=== PATIENT | male | born 1990 | race Caucasian/White ===

== ENCOUNTER 2017-05-02 16:35 | Emergency (ER) | payer SELFPAY | END 2017-05-02 17:25 | disposition home or self-care (01) | LOC: D.ER 16:35 | DX: K05.10 Chronic gingivitis, plaque induced (principal); K08.89 Other specified disorders of teeth and supporting structures; K02.9 Dental caries, unspecified; F17.200 Nicotine dependence, unspecified, uncomplicated ==

== ENCOUNTER 2017-10-07 19:18 | Emergency (ER) | payer SELFPAY ==
[~2017-10-07] VITALS: Ht 160 cm; Wt 63.6 kg
[2017-10-07 19:28] VITALS: Ht 160 cm; Wt 63.6 kg
[2017-10-07] MEDS ORDERED: VOLTAREN75 MG PO (20:38)
[2017-10-07 22:20] VITALS: BP 132/75
== END 2017-10-07 21:40 | disposition home or self-care (01) ==
LOC: D.ER 19:18
DX: S63.502A Unspecified sprain of left wrist, initial encounter (principal); W11.XXXA Fall on and from ladder, initial encounter; Y93.89 Activity, other specified; Y92.89 Other specified places as the place of occurrence of the external cause; F17.200 Nicotine dependence, unspecified, uncomplicated

== ENCOUNTER 2019-01-11 17:19 | Emergency (ER) | payer OTHER ==
[~2019-01-11] VITALS: Ht 160 cm; Wt 56.8 kg
[~2019-01-11 17:19] MED LIST: VOLTAREN75 MG PO
[2019-01-11 17:36] VITALS: Ht 160 cm; Wt 56.8 kg
[2019-01-11 17:56] LABS: BASOPHILS 0.2 % (0-2); EOSINOPHILS 0.9 % (0-7); HEMATOCRIT 42.8 % (42.0-54.0); HEMOGLOBIN 14.8 g/dL (13.5-17.5); IMMATURE GRANULOCYTES 0.2 % (0-5); LYMPHOCYTES 26.7 % (15-50); MCH 31.4 pg (26.0-34.0); MCHC 34.6 g/dL (31.0-37.0); MCV 90.7 fL (80.0-100.0); MEAN PLATELET VOLUME 9.3 fL (7.4-10.4); MONOCYTES 8.3 % (2-11); NEUTROPHILS 63.7 % (40-80); RBC 4.72 10x6/uL (4.20-6.10); RDW 13.6 % (11.5-14.5); WBC 11.8 10x3/uL (4.8-10.8)
[2019-01-11 17:57] LABS: PLATELET COUNT 407 10x3/uL (130-400)
[2019-01-11 18:02] LABS: APPEARANCE CLEAR (CLEAR); BILIRUBIN NEGATIVE (NEGATIVE); COLOR YELLOW (YELLOW); GLUCOSE NEGATIVE (NEGATIVE); KETONE NEGATIVE (NEGATIVE); NITRITE NEGATIVE (NEGATIVE); PROTEIN NEGATIVE (NEGATIVE); SPECIFIC GRAVITY 1.015 (1.005-1.020); UROBILINOGEN NORMAL (NORMAL)
[2019-01-11 18:32] LABS: ALBUMIN 3.7 g/dL (3.4-5.0); ALKALINE PHOSPHATASE 72 U/L (46-116); ALT (SGPT) 17 U/L (10-68); AMYLASE - SERUM 79 U/L (25-115); BILIRUBIN - TOTAL 0.18 mg/dL (0.2-1.3); CALC OSMOLALITY 278 mosm/kg (275-300); CARBON DIOXIDE 31.9 mmol/L (21.0-32.0); CHLORIDE - SERUM 103 mmol/L (98-107); GLUCOSE 93 mg/dL (74-106); LIPASE 149 U/L (73-393); POTASSIUM - SERUM 4.2 mmol/L (3.5-5.1); PROTEIN - SERUM 7.6 g/dL (6.4-8.2); SODIUM 139 mmol/L (136-145); UREA NITROGEN 14 mg/dL (7-18); eGFR NON AFRICAN AMERICAN > 90 mL/min (90-120)
[2019-01-11 18:34] LABS: TROPONIN-I < 0.017 ng/mL (0.000-0.060)
[2019-01-11] MEDS ORDERED: DULCOLAX STOOL100 MG PO (20:20)
[2019-01-11] MEDS ORDERED: MIRALAX17 GM PO (20:20)
[2019-01-11 20:45] VITALS: BP 135/92
== END 2019-01-11 20:45 | disposition home or self-care (01) ==
LOC: D.ER 17:19
PROVIDERS: Family Medicine
DX: K59.00 Constipation, unspecified (principal)

== ENCOUNTER 2019-10-17 16:37 | Emergency (ER) | payer SELFPAY ==
[~2019-10-17] VITALS: Ht 162.6 cm; Wt 56.8 kg
[~2019-10-17 16:37] MED LIST changes: +DULCOLAX STOOL100 MG PO; +MIRALAX17 GM PO
[2019-10-17 18:17] VITALS: Ht 162.6 cm; Wt 56.8 kg
[2019-10-17] MEDS ORDERED: ZOFRAN ODT4 MG/UDTAB PO (21:42)
[2019-10-17 21:48] VITALS: BP 124/68
== END 2019-10-17 21:42 | disposition home or self-care (01) ==
LOC: D.ER 16:37
DX: R07.81 Pleurodynia (principal)